=== PATIENT | female | born 1990 | race American Indian/Alaskan Native ===

== ENCOUNTER 2017-07-16 12:51 | Emergency (ER) | payer OTHER ==
[2017-07-16 15:23] VITALS: BP 140/80
[2017-07-16] MEDS ORDERED: MOTRIN PO ONE (22:18)
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
== END 2017-07-16 23:20 | disposition home or self-care (01) ==
LOC: ED 12:51
DX: S13.4XXA Sprain of ligaments of cervical spine, initial encounter (principal); M25.561 Pain in right knee; M25.562 Pain in left knee; F17.200 Nicotine dependence, unspecified, uncomplicated; V89.2XXA Person injured in unspecified motor-vehicle accident, traffic, initial encounter; Y93.89 Activity, other specified; Y99.8 Other external cause status; Y92.488 Other paved roadways as the place of occurrence of the external cause
CPT/HCPCS: 99283